=== PATIENT | female | born 1945 | race Caucasian/White ===

== ENCOUNTER 2020-11-02 15:50 | Inpatient (IN) | payer OTHER ==
[2020-11-02] MEDS ORDERED: DEXAMETHASONE SOD PHOSPHATE 10 MG/1 ML VIAL IVPUSH ONE (16:07)
[2020-11-02] MEDS ORDERED: DEXAMETHASONE SOD PHOSPHATE 4 MG/1 ML VIAL ONE (16:20)
[2020-11-02] MEDS ORDERED: ACETAMINOPHEN 1000 MG/100 ML VIAL (NON FORMULARY) IVPB ONE (17:28)
[2020-11-02] MEDS ORDERED: ACETAMINOPHEN INJECTION 100 ML IVPB ONE (17:48)
[2020-11-02 18:34] LABS: VENOUS BASE EXCESS -5.3 mmol/L (-2-2); VENOUS O2 SATURATION 55.7 % (70-80); VENOUS PCO2 41.8 mmHg (38-52); VENOUS PH 7.31 (7.310-7.410)
[2020-11-02 18:45] LABS: BASO % 0.2 % (0-2.0); HEMATOCRIT 28.7 % (32.4-45.2); HEMOGLOBIN 9.4 GM/dL (10.7-15.3); LYMPH % 25.8 % (8-40); MCH 29.6 pg (25.7-33.7); MCHC 32.8 g/dl (32.0-36.0); MEAN CELL VOLUME 90.2 fl (80-96); MEAN PLT VOLUME 9.6 fl (7.5-11.1); MONO % 6.7 % (3.8-10.2); NEUT % 67.3 % (42.8-82.8); PLATELET COUNT 220 K/MM3 (134-434); RBC 3.19 M/mm3 (3.60-5.2); RDW 14.7 % (11.6-15.6); WHITE BLOOD COUNT 6.3 K/mm3 (4.0-10.0)
[2020-11-02 19:00] LABS: CHLORIDE 103 mmol/L (98-107); POTASSIUM 4.2 mmol/L (3.5-5.1); SODIUM 135 mmol/L (136-145)
[2020-11-02 19:03] LABS: ALBUMIN 3.5 g/dl (3.4-5.0); ANION GAP 8 MMOL/L (8-16); BLOOD UREA NITROGEN 50.2 mg/dL (7-18); CO2 23 mmol/L (21-32); GLUCOSE,RANDOM 96 mg/dL (74-106)
[2020-11-02 19:05] LABS: BILIRUBIN,DIRECT 0.1 mg/dL (0.0-0.2)
[2020-11-02 19:06] LABS: CREATININE 2.6 mg/dL (0.55-1.3); SGOT/AST 71 U/L (15-37); SGPT/ALT 40 U/L (13-61)
[2020-11-02 19:07] LABS: BILIRUBIN,TOTAL 0.4 mg/dL (0.2-1); TOT PROT 7.6 g/dl (6.4-8.2)
[2020-11-02 19:08] LABS: ALK PHOS 30 U/L (45-117)
[2020-11-02 19:29] LABS: INR 1.1 (0.83-1.09); PROTHROMBIN TIME (PATIENT) 13.5 SEC (9.7-13.0)
[2020-11-02 19:32] LABS: ACTIVATED PTT 28.4 SECONDS (25.2-36.5)
[2020-11-02] MEDS ORDERED: ZINC SULFATE 220 MG CAPSULE (FP) ONE (20:48)
[2020-11-02] MEDS: ZINC SULFATE 220 MG CAPSULE (FP) PO SCH (20:52)
[2020-11-02] MEDS ORDERED: SODIUM CHLORIDE 1,000 ML IV SCH (21:00)
[2020-11-02] MEDS: ASCORBIC ACID 500 MG TABLET (FP) PO SCH (22:23)
[2020-11-03 02:36] LABS: LDH 436 U/L (84-246)
[2020-11-03 07:40] LABS: HEMATOCRIT 28.8 % (32.4-45.2); HEMOGLOBIN 9.3 GM/dL (10.7-15.3); MCH 29.2 pg (25.7-33.7); MCHC 32.4 g/dl (32.0-36.0); MEAN CELL VOLUME 90.2 fl (80-96); PLATELET COUNT 206 K/MM3 (134-434); RBC 3.19 M/mm3 (3.60-5.2); RDW 14.6 % (11.6-15.6); WHITE BLOOD COUNT 2.9 K/mm3 (4.0-10.0)
[2020-11-03] MEDS ORDERED: DEXAMETHASONE SOD PHOSPHATE 10 MG/1 ML VIAL IVPUSH ONE (08:00)
[2020-11-03 08:05] LABS: IRON SERUM 14 ug/dL (50-175)
[2020-11-03 08:06] LABS: TOTAL IRON BINDING CAPACITY 234 ug/dL (250-450)
[2020-11-03 08:30] LABS: BILIRUBIN,TOTAL 0.3 mg/dL (0.2-1); BLOOD UREA NITROGEN 57.8 mg/dL (7-18); CALCIUM 8.9 mg/dL (8.5-10.1); CREATININE 2.2 mg/dL (0.55-1.3); POTASSIUM 4.2 mmol/L (3.5-5.1); TOT PROT 6.8 g/dl (6.4-8.2)
[2020-11-03] MEDS: ZINC SULFATE 220 MG CAPSULE (FP) PO SCH (09:42)
[2020-11-03] MEDS: ASCORBIC ACID 500 MG TABLET (FP) PO SCH ×2 (09:42→21:07)
[2020-11-03] MEDS: DEXAMETHASONE SOD PHOSPHATE 4 MG/1 ML VIAL IVPUSH SCH (09:43)
[2020-11-03] MEDS: guaiFENesin 200 MG/10 ML 10 ML UNIT-DOSE CUPS PO PRN (09:43)
[2020-11-03] MEDS: FOLIC ACID 1 MG TABLET (FP) PO SCH (09:43)
[2020-11-03] MEDS ORDERED: ENOXAPARIN NA (PORCINE) 30 MG/0.3 ML DISP.SYRIN SQ SCH (10:00)
[2020-11-03] MEDS ORDERED: SODIUM CHLORIDE 1,000 ML IV SCH (11:13)
[2020-11-03] MEDS: FERROUS SO4 325 MG TABLET (FP) PO SCH ×2 (11:43→17:06)
[2020-11-03] MEDS ORDERED: HEPARIN NA (PORCINE) 5,000 UNITS/ML 1ML VIAL SQ SCH (14:00)
[2020-11-03] MEDS: LACTATED RINGERS SOLUTION 1,000 ML/1,000 ML INFUS.BAG IV SCH (14:42)
[2020-11-03 18:47] LABS: EPI CELLS >36 /uL (0-25.1); HYALINE CASTS 1 /uL (0-3.1); URINE APPEARANCE CLOUDY; URINE BACTERIA 2089 /uL (0-1359); URINE BILIRUBIN NEGATIVE (NEGATIVE); URINE COLOR YELLOW; URINE GLUCOSE (UA) NEGATIVE (NEGATIVE); URINE KETONE NEGATIVE (NEGATIVE); URINE LEUK ESTERASE 2+ (NEGATIVE); URINE NITRITE NEGATIVE (NEGATIVE); URINE PROTEIN NEGATIVE (NEGATIVE); URINE RBC 15 /uL (0-23.9); URINE UROBILINOGEN 0.2 mg/dL (0.2-1.0); URINE WBC 85 /uL (0-25.8)
[2020-11-03 20:21] LABS: YEAST NEGATIVE (NEGATIVE)
[2020-11-03] MEDS: ATORVASTATIN CA 40 MG TABLET (FP) PO SCH (21:07)
[2020-11-03] MEDS: DOCUSATE SODIUM 100 MG CAPSULE (FP) PO SCH (21:07)
[2020-11-03] MEDS: MONTELUKAST NA 10 MG TABLET PO SCH (21:07)
[2020-11-03] MEDS: BUDESONIDE/FORMETEROL FUMARATE 160/4.5 mcg INHALER IH SCH (21:08)
[2020-11-04] MEDS: HEPARIN NA (PORCINE) 5,000 UNITS/ML 1ML VIAL SQ SCH ×3 (06:09→22:10)
[2020-11-04] MEDS: ACETAMINOPHEN 325 MG TABLET (FP) PO PRN (06:25)
[2020-11-04] MEDS ORDERED: HEPARIN NA (PORCINE) 5,000 UNITS/ML 1ML VIAL SQ SCH (08:00)
[2020-11-04] MEDS ORDERED: ACETAMINOPHEN 1000 MG/100 ML VIAL (NON FORMULARY) IVPB ONE (08:21)
[2020-11-04 09:13] LABS: BASO % 0.1 % (0-2.0); HEMOGLOBIN 9.2 GM/dL (10.7-15.3); LYMPH % 15.6 % (8-40); MCH 30.2 pg (25.7-33.7); MCHC 34.1 g/dl (32.0-36.0); MEAN CELL VOLUME 88.6 fl (80-96); MEAN PLT VOLUME 8.4 fl (7.5-11.1); MONO % 5.5 % (3.8-10.2); NEUT % 78.8 % (42.8-82.8); PLATELET COUNT 290 K/MM3 (134-434); RBC 3.04 M/mm3 (3.60-5.2); RDW 14.5 % (11.6-15.6)
[2020-11-04] MEDS ORDERED: PT OWN MED DRAWER 7, Y5N ONE (09:28)
[2020-11-04] MEDS: ZINC SULFATE 220 MG CAPSULE (FP) PO SCH (09:37)
[2020-11-04] MEDS: FAMOTIDINE 20 MG TABLET PO SCH (09:37)
[2020-11-04] MEDS: DEXAMETHASONE SOD PHOSPHATE 4 MG/1 ML VIAL IVPUSH SCH (09:37)
[2020-11-04] MEDS: FOLIC ACID 1 MG TABLET (FP) PO SCH (09:38)
[2020-11-04] MEDS: ASPIRIN 81 MG CHEWABLE TABLETS PO SCH (09:38)
[2020-11-04] MEDS: ASCORBIC ACID 500 MG TABLET (FP) PO SCH ×2 (09:38→22:10)
[2020-11-04] MEDS: VALSARTAN 160 MG TABLET PO SCH (09:38)
[2020-11-04] MEDS: FERROUS SO4 325 MG TABLET (FP) PO SCH ×3 (09:38→17:31)
[2020-11-04 09:50] LABS: POTASSIUM 3.8 mmol/L (3.5-5.1)
[2020-11-04 10:07] LABS: ALBUMIN 2.7 g/dl (3.4-5.0); MAGNESIUM 2.5 mg/dL (1.8-2.4)
[2020-11-04 10:10] LABS: CREATININE 1.5 mg/dL (0.55-1.3)
[2020-11-04 10:11] LABS: BILIRUBIN,TOTAL 0.3 mg/dL (0.2-1)
[2020-11-04 10:12] LABS: TOT PROT 6.1 g/dl (6.4-8.2)
[2020-11-04] MEDS: BUDESONIDE/FORMETEROL FUMARATE 160/4.5 mcg INHALER IH SCH ×2 (10:14→22:10)
[2020-11-04] MEDS ORDERED: cefTRIAXone SODIUM 1 GM VIAL ONE (10:26)
[2020-11-04] MEDS ORDERED: DEXTROSE 5%-WATER - 50 ML IVPB ONE (10:26)
[2020-11-04] MEDS: CEFTRIAXONE 1 GM in DEXTROSE 5%-WATER - 50 ML IVPB SCH (10:32)
[2020-11-04] MEDS: AZITHROMYCIN IVPB 500 MG/250 ML BAG IVPB SCH (11:17)
[2020-11-04] MEDS ORDERED: REMDESIVIR 200 MG in SODIUM CHLORIDE 210 ML IVPB ONE (12:00)
[2020-11-04] MEDS: LACTATED RINGERS SOLUTION 1,000 ML/1,000 ML INFUS.BAG IV SCH (14:43)
[2020-11-04] MEDS: MONTELUKAST NA 10 MG TABLET PO SCH (22:10)
[2020-11-04] MEDS: ATORVASTATIN CA 40 MG TABLET (FP) PO SCH (22:10)
[2020-11-04] MEDS: DOCUSATE SODIUM 100 MG CAPSULE (FP) PO SCH (22:10)
[2020-11-05] MEDS: HEPARIN NA (PORCINE) 5,000 UNITS/ML 1ML VIAL SQ SCH ×3 (05:11→22:12)
[2020-11-05 07:56] LABS: BASO % 0.1 % (0-2.0); HEMATOCRIT 25.3 % (32.4-45.2); HEMOGLOBIN 8.6 GM/dL (10.7-15.3); LYMPH % 14.5 % (8-40); MCH 30.3 pg (25.7-33.7); MEAN PLT VOLUME 8.4 fl (7.5-11.1); MONO % 5.1 % (3.8-10.2); NEUT % 80.3 % (42.8-82.8); PLATELET COUNT 267 K/MM3 (134-434); RBC 2.84 M/mm3 (3.60-5.2); RDW 14.6 % (11.6-15.6); WHITE BLOOD COUNT 8.7 K/mm3 (4.0-10.0)
[2020-11-05 08:13] LABS: POTASSIUM 4.1 mmol/L (3.5-5.1)
[2020-11-05 08:22] LABS: ALBUMIN 2.6 g/dl (3.4-5.0); BLOOD UREA NITROGEN 33.4 mg/dL (7-18); CALCIUM 9.2 mg/dL (8.5-10.1); MAGNESIUM 2.5 mg/dL (1.8-2.4)
[2020-11-05 08:26] LABS: CREATININE 1.1 mg/dL (0.55-1.3)
[2020-11-05 08:27] LABS: BILIRUBIN,TOTAL 0.2 mg/dL (0.2-1); TOT PROT 5.9 g/dl (6.4-8.2)
[2020-11-05] MEDS ORDERED: cefTRIAXone SODIUM 1 GM VIAL ONE (09:51)
[2020-11-05] MEDS ORDERED: DEXTROSE 5%-WATER - 50 ML IVPB ONE (09:51)
[2020-11-05] MEDS: ASCORBIC ACID 500 MG TABLET (FP) PO SCH ×2 (10:27→22:14)
[2020-11-05] MEDS: FERROUS SO4 325 MG TABLET (FP) PO SCH ×3 (10:27→17:34)
[2020-11-05] MEDS: VALSARTAN 160 MG TABLET PO SCH (10:27)
[2020-11-05] MEDS: CEFTRIAXONE 1 GM in DEXTROSE 5%-WATER - 50 ML IVPB SCH (10:27)
[2020-11-05] MEDS: DEXAMETHASONE SOD PHOSPHATE 4 MG/1 ML VIAL IVPUSH SCH (10:27)
[2020-11-05] MEDS: ASPIRIN 81 MG CHEWABLE TABLETS PO SCH (10:27)
[2020-11-05] MEDS: FOLIC ACID 1 MG TABLET (FP) PO SCH (10:27)
[2020-11-05] MEDS: ZINC SULFATE 220 MG CAPSULE (FP) PO SCH (10:27)
[2020-11-05] MEDS: FAMOTIDINE 20 MG TABLET PO SCH (10:27)
[2020-11-05] MEDS: AZITHROMYCIN IVPB 500 MG/250 ML BAG IVPB SCH (10:29)
[2020-11-05] MEDS: BUDESONIDE/FORMETEROL FUMARATE 160/4.5 mcg INHALER IH SCH ×3 (10:36→22:14)
[2020-11-05] MEDS: REMDESIVIR 100 MG in SODIUM CHLORIDE 230 ML IVPB SCH (12:21)
[2020-11-05] MEDS: LACTATED RINGERS SOLUTION 1,000 ML/1,000 ML INFUS.BAG IV SCH (14:06)
[2020-11-05] MEDS: ATORVASTATIN CA 40 MG TABLET (FP) PO SCH (22:13)
[2020-11-05] MEDS: MONTELUKAST NA 10 MG TABLET PO SCH (22:13)
[2020-11-05] MEDS: DOCUSATE SODIUM 100 MG CAPSULE (FP) PO SCH (22:13)
[2020-11-06] MEDS: LACTATED RINGERS SOLUTION 1,000 ML/1,000 ML INFUS.BAG IV SCH ×2 (04:37→15:20)
[2020-11-06] MEDS: ACETAMINOPHEN 325 MG TABLET (FP) PO PRN (06:23)
[2020-11-06] MEDS: HEPARIN NA (PORCINE) 5,000 UNITS/ML 1ML VIAL SQ SCH ×3 (06:23→21:51)
[2020-11-06 07:43] LABS: BASO % 0.1 % (0-2.0); EOS % 0.1 % (0-4.5); HEMOGLOBIN 8.8 GM/dL (10.7-15.3); LYMPH % 15.3 % (8-40); MCH 30.2 pg (25.7-33.7); MCHC 33.9 g/dl (32.0-36.0); MEAN PLT VOLUME 8.3 fl (7.5-11.1); MONO % 4.9 % (3.8-10.2); NEUT % 79.6 % (42.8-82.8); PLATELET COUNT 326 K/MM3 (134-434); RBC 2.92 M/mm3 (3.60-5.2); RDW 14.4 % (11.6-15.6); WHITE BLOOD COUNT 11.2 K/mm3 (4.0-10.0)
[2020-11-06 07:57] LABS: POTASSIUM 3.6 mmol/L (3.5-5.1)
[2020-11-06 08:04] LABS: ALBUMIN 2.3 g/dl (3.4-5.0)
[2020-11-06 08:06] LABS: CREATININE 0.9 mg/dL (0.55-1.3)
[2020-11-06 08:07] LABS: TOT PROT 5.6 g/dl (6.4-8.2)
[2020-11-06 08:09] LABS: BILIRUBIN,TOTAL 0.3 mg/dL (0.2-1)
[2020-11-06] MEDS ORDERED: POTASSIUM CHLORIDE TABS 20 MEQ TABLET.ER (FP) PO ONE (09:45)
[2020-11-06] MEDS ORDERED: cefTRIAXone SODIUM 1 GM VIAL ONE (10:45)
[2020-11-06] MEDS ORDERED: DEXTROSE 5%-WATER - 50 ML IVPB ONE (10:45)
[2020-11-06] MEDS: AZITHROMYCIN IVPB 500 MG/250 ML BAG IVPB SCH (10:50)
[2020-11-06] MEDS: ZINC SULFATE 220 MG CAPSULE (FP) PO SCH (10:50)
[2020-11-06] MEDS: CEFTRIAXONE 1 GM in DEXTROSE 5%-WATER - 50 ML IVPB SCH (10:50)
[2020-11-06] MEDS: FERROUS SO4 325 MG TABLET (FP) PO SCH ×3 (10:51→17:37)
[2020-11-06] MEDS: ASPIRIN 81 MG CHEWABLE TABLETS PO SCH (10:51)
[2020-11-06] MEDS: ASCORBIC ACID 500 MG TABLET (FP) PO SCH ×2 (10:51→21:51)
[2020-11-06] MEDS: VALSARTAN 160 MG TABLET PO SCH (10:51)
[2020-11-06] MEDS: DEXAMETHASONE SOD PHOSPHATE 4 MG/1 ML VIAL IVPUSH SCH (10:51)
[2020-11-06] MEDS: BUDESONIDE/FORMETEROL FUMARATE 160/4.5 mcg INHALER IH SCH ×2 (10:52→21:52)
[2020-11-06] MEDS: FOLIC ACID 1 MG TABLET (FP) PO SCH (10:53)
[2020-11-06] MEDS: FAMOTIDINE 20 MG TABLET PO SCH (10:53)
[2020-11-06] MEDS: REMDESIVIR 100 MG in SODIUM CHLORIDE 230 ML IVPB SCH (12:31)
[2020-11-06] MEDS: ALPRAZolam 0.25 MG TABLET PO PRN (13:02)
[2020-11-06] MEDS ORDERED: TOCILIZUMAB IVPB ONE (15:00)
[2020-11-06] MEDS ORDERED: SODIUM CHLORIDE IVPB ONE (15:00)
[2020-11-06] MEDS ORDERED: LACTATED RINGERS SOLUTION 1,000 ML/1,000 ML INFUS.BAG IV SCH (15:35)
[2020-11-06] MEDS: ATORVASTATIN CA 40 MG TABLET (FP) PO SCH (21:51)
[2020-11-06] MEDS: DOCUSATE SODIUM 100 MG CAPSULE (FP) PO SCH (21:51)
[2020-11-06] MEDS: MONTELUKAST NA 10 MG TABLET PO SCH (21:51)
[2020-11-07] MEDS: HEPARIN NA (PORCINE) 5,000 UNITS/ML 1ML VIAL SQ SCH ×3 (06:32→21:27)
[2020-11-07 08:58] LABS: BASO % 0.2 % (0-2.0); EOS % 0.8 % (0-4.5); HEMATOCRIT 28.7 % (32.4-45.2); HEMOGLOBIN 9.5 GM/dL (10.7-15.3); LYMPH % 21.2 % (8-40); MCH 29.6 pg (25.7-33.7); MCHC 33.2 g/dl (32.0-36.0); MEAN CELL VOLUME 89.1 fl (80-96); MEAN PLT VOLUME 8.2 fl (7.5-11.1); MONO % 4.8 % (3.8-10.2); PLATELET COUNT 392 K/MM3 (134-434); RBC 3.22 M/mm3 (3.60-5.2); RDW 14.6 % (11.6-15.6); WHITE BLOOD COUNT 9.1 K/mm3 (4.0-10.0)
[2020-11-07 09:11] LABS: POTASSIUM 4.1 mmol/L (3.5-5.1)
[2020-11-07 09:17] LABS: CALCIUM 8.6 mg/dL (8.5-10.1)
[2020-11-07 09:18] LABS: ALBUMIN 2.2 g/dl (3.4-5.0); BLOOD UREA NITROGEN 22.4 mg/dL (7-18)
[2020-11-07 09:21] LABS: CREATININE 0.8 mg/dL (0.55-1.3)
[2020-11-07 09:22] LABS: BILIRUBIN,TOTAL 0.3 mg/dL (0.2-1); TOT PROT 5.6 g/dl (6.4-8.2)
[2020-11-07] MEDS ORDERED: cefTRIAXone SODIUM 1 GM VIAL ONE (09:51)
[2020-11-07] MEDS ORDERED: DEXTROSE 5%-WATER - 50 ML IVPB ONE (09:51)
[2020-11-07] MEDS: FERROUS SO4 325 MG TABLET (FP) PO SCH ×3 (09:54→18:03)
[2020-11-07] MEDS: ASCORBIC ACID 500 MG TABLET (FP) PO SCH ×2 (09:54→21:31)
[2020-11-07] MEDS: ASPIRIN 81 MG CHEWABLE TABLETS PO SCH (09:54)
[2020-11-07] MEDS: ZINC SULFATE 220 MG CAPSULE (FP) PO SCH (09:54)
[2020-11-07] MEDS: FOLIC ACID 1 MG TABLET (FP) PO SCH (09:54)
[2020-11-07] MEDS: VALSARTAN 160 MG TABLET PO SCH (09:54)
[2020-11-07] MEDS: FAMOTIDINE 20 MG TABLET PO SCH (09:54)
[2020-11-07] MEDS: DEXAMETHASONE SOD PHOSPHATE 4 MG/1 ML VIAL IVPUSH SCH (09:56)
[2020-11-07] MEDS: AZITHROMYCIN IVPB 500 MG/250 ML BAG IVPB SCH (10:06)
[2020-11-07] MEDS: BUDESONIDE/FORMETEROL FUMARATE 160/4.5 mcg INHALER IH SCH ×2 (10:06→21:45)
[2020-11-07] MEDS: ALPRAZolam 0.25 MG TABLET PO PRN (10:32)
[2020-11-07] MEDS ORDERED: FUROSEMIDE 40 MG/4 ML INJECTABLE VIAL IVPB ONE (10:45)
[2020-11-07] MEDS ORDERED: methylPREDNISolone NA SUCC 40 MG/1 ML VIAL IVPUSH ONE (10:45)
[2020-11-07] MEDS: CEFTRIAXONE 1 GM in DEXTROSE 5%-WATER - 50 ML IVPB SCH (10:53)
[2020-11-07] MEDS ORDERED: MORPHINE SULFATE 2 MG/ML VIAL IVPUSH ONE ×2 (11:00→21:00)
[2020-11-07] MEDS ORDERED: LORazepam 2 MG/ML SDV VIAL IVPUSH ONE ×2 (12:00→21:00)
[2020-11-07] MEDS: REMDESIVIR 100 MG in SODIUM CHLORIDE 230 ML IVPB SCH (12:08)
[2020-11-07] MEDS ORDERED: MORPHINE SULFATE 2 MG/ML VIAL IVPUSH PRN (16:31)
[2020-11-07] MEDS ORDERED: ACETAMINOPHEN 1000 MG/100 ML VIAL (NON FORMULARY) IVPB PRN (16:33)
[2020-11-07] MEDS: MONTELUKAST NA 10 MG TABLET PO SCH (21:31)
[2020-11-07] MEDS: ATORVASTATIN CA 40 MG TABLET (FP) PO SCH (21:31)
[2020-11-07] MEDS: DOCUSATE SODIUM 100 MG CAPSULE (FP) PO SCH (21:31)
[2020-11-08] MEDS: HEPARIN NA (PORCINE) 5,000 UNITS/ML 1ML VIAL SQ SCH ×3 (05:55→21:39)
[2020-11-08 09:02] LABS: BASO % 0.2 % (0-2.0); EOS % 0.1 % (0-4.5); HEMATOCRIT 29.1 % (32.4-45.2); HEMOGLOBIN 9.7 GM/dL (10.7-15.3); LYMPH % 14.2 % (8-40); MCH 29.8 pg (25.7-33.7); MCHC 33.5 g/dl (32.0-36.0); MEAN PLT VOLUME 8.2 fl (7.5-11.1); MONO % 7.3 % (3.8-10.2); NEUT % 78.2 % (42.8-82.8); PLATELET COUNT 440 K/MM3 (134-434); RBC 3.27 M/mm3 (3.60-5.2); RDW 14.4 % (11.6-15.6); WHITE BLOOD COUNT 12.5 K/mm3 (4.0-10.0)
[2020-11-08 09:21] LABS: POTASSIUM 4.3 mmol/L (3.5-5.1)
[2020-11-08 09:32] LABS: CALCIUM 9.1 mg/dL (8.5-10.1)
[2020-11-08 09:33] LABS: ALBUMIN 2.3 g/dl (3.4-5.0); BLOOD UREA NITROGEN 33.7 mg/dL (7-18); MAGNESIUM 2.1 mg/dL (1.8-2.4)
[2020-11-08 09:36] LABS: CREATININE 0.9 mg/dL (0.55-1.3)
[2020-11-08 09:38] LABS: BILIRUBIN,TOTAL 0.6 mg/dL (0.2-1)
[2020-11-08 09:41] LABS: TOT PROT 5.6 g/dl (6.4-8.2)
[2020-11-08] MEDS: FOLIC ACID 1 MG TABLET (FP) PO SCH (10:07)
[2020-11-08] MEDS: ZINC SULFATE 220 MG CAPSULE (FP) PO SCH (10:07)
[2020-11-08] MEDS: VALSARTAN 160 MG TABLET PO SCH (10:07)
[2020-11-08] MEDS: FAMOTIDINE 20 MG TABLET PO SCH (10:07)
[2020-11-08] MEDS: ASCORBIC ACID 500 MG TABLET (FP) PO SCH ×2 (10:07→21:41)
[2020-11-08] MEDS: FERROUS SO4 325 MG TABLET (FP) PO SCH ×3 (10:07→17:29)
[2020-11-08] MEDS: ASPIRIN 81 MG CHEWABLE TABLETS PO SCH (10:07)
[2020-11-08] MEDS: BUDESONIDE/FORMETEROL FUMARATE 160/4.5 mcg INHALER IH SCH ×2 (10:08→21:42)
[2020-11-08] MEDS: AZITHROMYCIN IVPB 500 MG/250 ML BAG IVPB SCH (10:08)
[2020-11-08] MEDS: DEXAMETHASONE SOD PHOSPHATE 4 MG/1 ML VIAL IVPUSH SCH (10:08)
[2020-11-08] MEDS: REMDESIVIR 100 MG in SODIUM CHLORIDE 230 ML IVPB SCH (12:17)
[2020-11-08] MEDS: MONTELUKAST NA 10 MG TABLET PO SCH (21:40)
[2020-11-08] MEDS: ATORVASTATIN CA 40 MG TABLET (FP) PO SCH (21:40)
[2020-11-08] MEDS: ALPRAZolam 0.25 MG TABLET PO PRN (21:41)
[2020-11-08] MEDS: DOCUSATE SODIUM 100 MG CAPSULE (FP) PO SCH (21:52)
[2020-11-09] MEDS: HEPARIN NA (PORCINE) 5,000 UNITS/ML 1ML VIAL SQ SCH ×3 (05:56→21:17)
[2020-11-09 06:57] LABS: BASO % 0.1 % (0-2.0); EOS % 0.6 % (0-4.5); HEMATOCRIT 28.2 % (32.4-45.2); HEMOGLOBIN 9.1 GM/dL (10.7-15.3); LYMPH % 17.2 % (8-40); MCHC 32.1 g/dl (32.0-36.0); MEAN CELL VOLUME 90.2 fl (80-96); MEAN PLT VOLUME 8.1 fl (7.5-11.1); MONO % 6.8 % (3.8-10.2); NEUT % 75.3 % (42.8-82.8); PLATELET COUNT 418 K/MM3 (134-434); RBC 3.13 M/mm3 (3.60-5.2); RDW 14.5 % (11.6-15.6); WHITE BLOOD COUNT 11.4 K/mm3 (4.0-10.0)
[2020-11-09 07:22] LABS: POTASSIUM 4.1 mmol/L (3.5-5.1)
[2020-11-09 07:30] LABS: ALBUMIN 2.3 g/dl (3.4-5.0)
[2020-11-09 07:31] LABS: BLOOD UREA NITROGEN 35.4 mg/dL (7-18); MAGNESIUM 2.2 mg/dL (1.8-2.4)
[2020-11-09 07:32] LABS: BILIRUBIN,TOTAL 0.3 mg/dL (0.2-1); TOT PROT 5.4 g/dl (6.4-8.2)
[2020-11-09 07:34] LABS: CREATININE 0.8 mg/dL (0.55-1.3)
[2020-11-09 10:10] LABS: PLATELET ESTIMATE SLT INCREASE
[2020-11-09] MEDS: ASCORBIC ACID 500 MG TABLET (FP) PO SCH ×2 (11:22→21:17)
[2020-11-09] MEDS: VALSARTAN 160 MG TABLET PO SCH (11:22)
[2020-11-09] MEDS: FERROUS SO4 325 MG TABLET (FP) PO SCH ×3 (11:22→18:33)
[2020-11-09] MEDS: ASPIRIN 81 MG CHEWABLE TABLETS PO SCH (11:22)
[2020-11-09] MEDS: FAMOTIDINE 20 MG TABLET PO SCH (11:22)
[2020-11-09] MEDS: ZINC SULFATE 220 MG CAPSULE (FP) PO SCH (11:22)
[2020-11-09] MEDS: DEXAMETHASONE SOD PHOSPHATE 4 MG/1 ML VIAL IVPUSH SCH (11:23)
[2020-11-09] MEDS: FOLIC ACID 1 MG TABLET (FP) PO SCH (11:23)
[2020-11-09] MEDS: BUDESONIDE/FORMETEROL FUMARATE 160/4.5 mcg INHALER IH SCH ×2 (11:24→21:22)
[2020-11-09 13:22] VITALS: BMI 31.6
[2020-11-09] MEDS: guaiFENesin 200 MG/10 ML 10 ML UNIT-DOSE CUPS PO PRN (18:33)
[2020-11-09] MEDS: DOCUSATE SODIUM 100 MG CAPSULE (FP) PO SCH (21:16)
[2020-11-09] MEDS: MONTELUKAST NA 10 MG TABLET PO SCH (21:17)
[2020-11-09] MEDS: ATORVASTATIN CA 40 MG TABLET (FP) PO SCH (21:17)
[2020-11-09] MEDS: ALPRAZolam 0.25 MG TABLET PO PRN (21:22)
[2020-11-10] MEDS: guaiFENesin 200 MG/10 ML 10 ML UNIT-DOSE CUPS PO PRN ×2 (06:17→21:22)
[2020-11-10] MEDS: HEPARIN NA (PORCINE) 5,000 UNITS/ML 1ML VIAL SQ SCH ×3 (06:17→21:22)
[2020-11-10] MEDS: DEXAMETHASONE SOD PHOSPHATE 4 MG/1 ML VIAL IVPUSH SCH (09:09)
[2020-11-10] MEDS: ZINC SULFATE 220 MG CAPSULE (FP) PO SCH (09:09)
[2020-11-10] MEDS: ASPIRIN 81 MG CHEWABLE TABLETS PO SCH (09:09)
[2020-11-10] MEDS: FERROUS SO4 325 MG TABLET (FP) PO SCH ×3 (09:09→17:58)
[2020-11-10] MEDS: FOLIC ACID 1 MG TABLET (FP) PO SCH (09:09)
[2020-11-10] MEDS: FAMOTIDINE 20 MG TABLET PO SCH (09:09)
[2020-11-10] MEDS: ASCORBIC ACID 500 MG TABLET (FP) PO SCH ×2 (09:09→21:22)
[2020-11-10] MEDS: BUDESONIDE/FORMETEROL FUMARATE 160/4.5 mcg INHALER IH SCH ×2 (09:09→21:47)
[2020-11-10] MEDS: VALSARTAN 160 MG TABLET PO SCH (09:09)
[2020-11-10] MEDS: ATORVASTATIN CA 40 MG TABLET (FP) PO SCH (21:22)
[2020-11-10] MEDS: ALPRAZolam 0.25 MG TABLET PO PRN (21:22)
[2020-11-10] MEDS: MONTELUKAST NA 10 MG TABLET PO SCH (21:22)
[2020-11-10] MEDS: DOCUSATE SODIUM 100 MG CAPSULE (FP) PO SCH (21:22)
[2020-11-11] MEDS: HEPARIN NA (PORCINE) 5,000 UNITS/ML 1ML VIAL SQ SCH (06:23)
[2020-11-11 08:07] LABS: BASO % 0.2 % (0-2.0); EOS % 1.3 % (0-4.5); HEMATOCRIT 28.2 % (32.4-45.2); HEMOGLOBIN 9.1 GM/dL (10.7-15.3); LYMPH % 19.3 % (8-40); MCH 29.4 pg (25.7-33.7); MCHC 32.5 g/dl (32.0-36.0); MEAN CELL VOLUME 90.6 fl (80-96); MEAN PLT VOLUME 8.2 fl (7.5-11.1); MONO % 5.9 % (3.8-10.2); NEUT % 73.3 % (42.8-82.8); PLATELET COUNT 352 K/MM3 (134-434); RBC 3.11 M/mm3 (3.60-5.2); RDW 14.7 % (11.6-15.6); WHITE BLOOD COUNT 12.2 K/mm3 (4.0-10.0)
[2020-11-11 08:28] LABS: POTASSIUM 3.9 mmol/L (3.5-5.1)
[2020-11-11 08:36] LABS: ALBUMIN 2.4 g/dl (3.4-5.0); BLOOD UREA NITROGEN 33.1 mg/dL (7-18)
[2020-11-11 08:37] LABS: MAGNESIUM 2.2 mg/dL (1.8-2.4)
[2020-11-11 08:38] LABS: CREATININE 0.8 mg/dL (0.55-1.3)
[2020-11-11 08:41] LABS: BILIRUBIN,TOTAL 0.3 mg/dL (0.2-1); TOT PROT 5.1 g/dl (6.4-8.2)
[2020-11-11] MEDS: ASPIRIN 81 MG CHEWABLE TABLETS PO SCH (09:18)
[2020-11-11] MEDS: FERROUS SO4 325 MG TABLET (FP) PO SCH ×3 (09:18→17:22)
[2020-11-11] MEDS: DEXAMETHASONE SOD PHOSPHATE 4 MG/1 ML VIAL IVPUSH SCH (09:19)
[2020-11-11] MEDS: VALSARTAN 160 MG TABLET PO SCH (09:20)
[2020-11-11] MEDS: ZINC SULFATE 220 MG CAPSULE (FP) PO SCH (09:20)
[2020-11-11] MEDS: FAMOTIDINE 20 MG TABLET PO SCH (09:21)
[2020-11-11] MEDS: ASCORBIC ACID 500 MG TABLET (FP) PO SCH ×2 (09:21→21:58)
[2020-11-11] MEDS: FOLIC ACID 1 MG TABLET (FP) PO SCH (09:21)
[2020-11-11] MEDS: guaiFENesin 200 MG/10 ML 10 ML UNIT-DOSE CUPS PO PRN ×2 (09:24→21:59)
[2020-11-11] MEDS: ALPRAZolam 0.25 MG TABLET PO PRN ×2 (09:24→21:59)
[2020-11-11] MEDS: BUDESONIDE/FORMETEROL FUMARATE 160/4.5 mcg INHALER IH SCH ×2 (09:38→21:58)
[2020-11-11 10:45] LABS: ANISOCYTOSIS 0; HELMET CELLS 0; HOWELL-JOLLY BODIES 0; MACROCYTOSIS 0; OVALOCYTE 0; PLATELET ESTIMATE NORMAL; ROULEAU 0; SICKELED CELLS 0; TARGET CELLS 0; TEAR DROP CELLS 0; TOXIC GRANULATION 0
[2020-11-11] MEDS: DOCUSATE SODIUM 100 MG CAPSULE (FP) PO SCH (21:57)
[2020-11-11] MEDS: MONTELUKAST NA 10 MG TABLET PO SCH (21:58)
[2020-11-11] MEDS: ATORVASTATIN CA 40 MG TABLET (FP) PO SCH (21:58)
[2020-11-11] MEDS: APIXABAN 5 MG TABLET PO SCH (21:58)
[2020-11-12 08:08] LABS: ALBUMIN 2.8 g/dl (3.4-5.0); BLOOD UREA NITROGEN 35.2 mg/dL (7-18); CALCIUM 9.1 mg/dL (8.5-10.1); MAGNESIUM 2.1 mg/dL (1.8-2.4)
[2020-11-12 08:11] LABS: BASO % 0.3 % (0-2.0); HEMATOCRIT 28.6 % (32.4-45.2); HEMOGLOBIN 9.4 GM/dL (10.7-15.3); LYMPH % 17.8 % (8-40); MCH 30.1 pg (25.7-33.7); MEAN CELL VOLUME 91.1 fl (80-96); MEAN PLT VOLUME 8.8 fl (7.5-11.1); MONO % 6.3 % (3.8-10.2); NEUT % 74.6 % (42.8-82.8); PLATELET COUNT 339 K/MM3 (134-434); RBC 3.14 M/mm3 (3.60-5.2); RDW 14.7 % (11.6-15.6); WHITE BLOOD COUNT 13.5 K/mm3 (4.0-10.0)
[2020-11-12 08:12] LABS: CREATININE 0.8 mg/dL (0.55-1.3)
[2020-11-12 08:13] LABS: BILIRUBIN,TOTAL 0.4 mg/dL (0.2-1); TOT PROT 5.7 g/dl (6.4-8.2)
[2020-11-12] MEDS: FERROUS SO4 325 MG TABLET (FP) PO SCH ×3 (10:24→18:20)
[2020-11-12] MEDS: FOLIC ACID 1 MG TABLET (FP) PO SCH (10:25)
[2020-11-12] MEDS: APIXABAN 5 MG TABLET PO SCH ×2 (10:25→21:18)
[2020-11-12] MEDS: ASCORBIC ACID 500 MG TABLET (FP) PO SCH ×2 (10:25→21:17)
[2020-11-12] MEDS: ZINC SULFATE 220 MG CAPSULE (FP) PO SCH (10:25)
[2020-11-12] MEDS: VALSARTAN 160 MG TABLET PO SCH (10:26)
[2020-11-12] MEDS: ASPIRIN 81 MG CHEWABLE TABLETS PO SCH (10:26)
[2020-11-12] MEDS: DEXAMETHASONE SOD PHOSPHATE 4 MG/1 ML VIAL IVPUSH SCH (10:26)
[2020-11-12] MEDS: BUDESONIDE/FORMETEROL FUMARATE 160/4.5 mcg INHALER IH SCH ×2 (10:27→21:18)
[2020-11-12] MEDS: FAMOTIDINE 20 MG TABLET PO SCH (10:27)
[2020-11-12 10:42] LABS: ANISOCYTOSIS 0; HELMET CELLS 0; HOWELL-JOLLY BODIES 0; MACROCYTOSIS 0; OVALOCYTE 0; PLATELET ESTIMATE NORMAL; ROULEAU 0; SICKELED CELLS 0; TARGET CELLS 0; TEAR DROP CELLS 0; TOXIC GRANULATION 0
[2020-11-12] MEDS: ZINC OXIDE/PANTHENOL/VITAMIN E 56 GM TUBE TP SCH ×2 (15:30→21:19)
[2020-11-12] MEDS: MONTELUKAST NA 10 MG TABLET PO SCH (21:17)
[2020-11-12] MEDS: guaiFENesin 200 MG/10 ML 10 ML UNIT-DOSE CUPS PO PRN (21:17)
[2020-11-12] MEDS: ATORVASTATIN CA 40 MG TABLET (FP) PO SCH (21:18)
[2020-11-12] MEDS: DOCUSATE SODIUM 100 MG CAPSULE (FP) PO SCH (21:18)
[2020-11-12] MEDS: ALPRAZolam 0.25 MG TABLET PO PRN (21:19)
[2020-11-13 07:55] LABS: BASO % 0.2 % (0-2.0); EOS % 0.6 % (0-4.5); HEMATOCRIT 27.9 % (32.4-45.2); HEMOGLOBIN 9.2 GM/dL (10.7-15.3); LYMPH % 14.7 % (8-40); MCH 29.6 pg (25.7-33.7); MCHC 32.8 g/dl (32.0-36.0); MEAN CELL VOLUME 90.4 fl (80-96); MEAN PLT VOLUME 8.4 fl (7.5-11.1); MONO % 5.1 % (3.8-10.2); NEUT % 79.4 % (42.8-82.8); PLATELET COUNT 293 K/MM3 (134-434); RBC 3.09 M/mm3 (3.60-5.2); RDW 14.2 % (11.6-15.6)
[2020-11-13 08:14] LABS: POTASSIUM 4.1 mmol/L (3.5-5.1)
[2020-11-13 08:18] LABS: BLOOD UREA NITROGEN 35.8 mg/dL (7-18); CALCIUM 9.3 mg/dL (8.5-10.1)
[2020-11-13 08:19] LABS: ALBUMIN 2.6 g/dl (3.4-5.0); MAGNESIUM 2.2 mg/dL (1.8-2.4)
[2020-11-13 08:20] LABS: BILIRUBIN,TOTAL 0.4 mg/dL (0.2-1)
[2020-11-13 08:21] LABS: CREATININE 0.8 mg/dL (0.55-1.3)
[2020-11-13 08:24] LABS: TOT PROT 5.4 g/dl (6.4-8.2)
[2020-11-13] MEDS ORDERED: PT OWN MED DRAWER 7, Y5N ONE (09:54)
[2020-11-13] MEDS: DEXAMETHASONE SOD PHOSPHATE 4 MG/1 ML VIAL IVPUSH SCH (10:07)
[2020-11-13] MEDS: FERROUS SO4 325 MG TABLET (FP) PO SCH ×3 (10:07→17:38)
[2020-11-13] MEDS: FOLIC ACID 1 MG TABLET (FP) PO SCH (10:08)
[2020-11-13] MEDS: ZINC OXIDE/PANTHENOL/VITAMIN E 56 GM TUBE TP SCH ×2 (10:08→22:22)
[2020-11-13] MEDS: ASPIRIN 81 MG CHEWABLE TABLETS PO SCH (10:08)
[2020-11-13] MEDS: ZINC SULFATE 220 MG CAPSULE (FP) PO SCH (10:08)
[2020-11-13] MEDS: ASCORBIC ACID 500 MG TABLET (FP) PO SCH ×2 (10:08→22:26)
[2020-11-13] MEDS: APIXABAN 5 MG TABLET PO SCH ×2 (10:08→22:26)
[2020-11-13] MEDS: BUDESONIDE/FORMETEROL FUMARATE 160/4.5 mcg INHALER IH SCH ×2 (10:09→22:37)
[2020-11-13] MEDS: FAMOTIDINE 20 MG TABLET PO SCH (10:09)
[2020-11-13] MEDS: VALSARTAN 160 MG TABLET PO SCH (10:09)
[2020-11-13] MEDS: ATORVASTATIN CA 40 MG TABLET (FP) PO SCH (22:26)
[2020-11-13] MEDS: DOCUSATE SODIUM 100 MG CAPSULE (FP) PO SCH (22:26)
[2020-11-13] MEDS: MONTELUKAST NA 10 MG TABLET PO SCH (22:26)
[2020-11-13] MEDS: ALPRAZolam 0.25 MG TABLET PO PRN (23:00)
[2020-11-14 06:35] LABS: BASO % 0.2 % (0-2.0); EOS % 0.3 % (0-4.5); HEMATOCRIT 26.8 % (32.4-45.2); HEMOGLOBIN 8.9 GM/dL (10.7-15.3); LYMPH % 12.2 % (8-40); MCH 29.9 pg (25.7-33.7); MCHC 33.2 g/dl (32.0-36.0); MEAN CELL VOLUME 90.1 fl (80-96); MEAN PLT VOLUME 8.4 fl (7.5-11.1); MONO % 5.6 % (3.8-10.2); NEUT % 81.7 % (42.8-82.8); PLATELET COUNT 248 K/MM3 (134-434); RBC 2.98 M/mm3 (3.60-5.2); RDW 14.1 % (11.6-15.6)
[2020-11-14 06:53] LABS: POTASSIUM 4.1 mmol/L (3.5-5.1)
[2020-11-14 06:55] LABS: ALBUMIN 2.7 g/dl (3.4-5.0); BLOOD UREA NITROGEN 31.7 mg/dL (7-18); CALCIUM 8.9 mg/dL (8.5-10.1)
[2020-11-14 06:58] LABS: CREATININE 0.7 mg/dL (0.55-1.3)
[2020-11-14 06:59] LABS: BILIRUBIN,TOTAL 0.4 mg/dL (0.2-1); TOT PROT 5.3 g/dl (6.4-8.2)
[2020-11-14] MEDS: DEXAMETHASONE SOD PHOSPHATE 4 MG/1 ML VIAL IVPUSH SCH (09:21)
[2020-11-14] MEDS: FAMOTIDINE 20 MG TABLET PO SCH (09:22)
[2020-11-14] MEDS: FERROUS SO4 325 MG TABLET (FP) PO SCH ×3 (09:22→17:37)
[2020-11-14] MEDS: ASCORBIC ACID 500 MG TABLET (FP) PO SCH ×2 (09:22→21:26)
[2020-11-14] MEDS: ZINC SULFATE 220 MG CAPSULE (FP) PO SCH (09:23)
[2020-11-14] MEDS: APIXABAN 5 MG TABLET PO SCH ×2 (09:23→21:25)
[2020-11-14] MEDS: ZINC OXIDE/PANTHENOL/VITAMIN E 56 GM TUBE TP SCH ×2 (09:23→21:25)
[2020-11-14] MEDS: FOLIC ACID 1 MG TABLET (FP) PO SCH (09:23)
[2020-11-14] MEDS: ASPIRIN 81 MG CHEWABLE TABLETS PO SCH (09:23)
[2020-11-14] MEDS: VALSARTAN 160 MG TABLET PO SCH (09:35)
[2020-11-14] MEDS: BUDESONIDE/FORMETEROL FUMARATE 160/4.5 mcg INHALER IH SCH ×2 (09:36→21:26)
[2020-11-14] MEDS: ALPRAZolam 0.25 MG TABLET PO PRN ×2 (10:39→21:27)
[2020-11-14] MEDS: ATORVASTATIN CA 40 MG TABLET (FP) PO SCH (21:25)
[2020-11-14] MEDS: DOCUSATE SODIUM 100 MG CAPSULE (FP) PO SCH (21:25)
[2020-11-14] MEDS: MONTELUKAST NA 10 MG TABLET PO SCH (21:26)
[2020-11-14] MEDS: guaiFENesin 200 MG/10 ML 10 ML UNIT-DOSE CUPS PO PRN (21:27)
[2020-11-15 07:07] LABS: BASO % 0.4 % (0-2.0); EOS % 0.2 % (0-4.5); HEMATOCRIT 27.9 % (32.4-45.2); HEMOGLOBIN 9.4 GM/dL (10.7-15.3); LYMPH % 13.3 % (8-40); MCH 30.3 pg (25.7-33.7); MCHC 33.5 g/dl (32.0-36.0); MEAN CELL VOLUME 90.5 fl (80-96); MEAN PLT VOLUME 8.7 fl (7.5-11.1); MONO % 6.2 % (3.8-10.2); NEUT % 79.9 % (42.8-82.8); PLATELET COUNT 224 K/MM3 (134-434); RBC 3.08 M/mm3 (3.60-5.2); RDW 14.2 % (11.6-15.6); WHITE BLOOD COUNT 17.2 K/mm3 (4.0-10.0)
[2020-11-15 07:38] LABS: CHLORIDE 110 mmol/L (98-107); POTASSIUM 3.9 mmol/L (3.5-5.1); SODIUM 142 mmol/L (136-145)
[2020-11-15 07:39] LABS: CALCIUM 8.9 mg/dL (8.5-10.1)
[2020-11-15 07:40] LABS: ALBUMIN 2.7 g/dl (3.4-5.0); ANION GAP 4 MMOL/L (8-16); BLOOD UREA NITROGEN 31.4 mg/dL (7-18); CO2 28 mmol/L (21-32); GLUCOSE,RANDOM 95 mg/dL (74-106); MAGNESIUM 2.1 mg/dL (1.8-2.4)
[2020-11-15 07:43] LABS: CREATININE 0.7 mg/dL (0.55-1.3); SGOT/AST 32 U/L (15-37); SGPT/ALT 44 U/L (13-61)
[2020-11-15 07:45] LABS: BILIRUBIN,TOTAL 0.5 mg/dL (0.2-1); TOT PROT 5.4 g/dl (6.4-8.2)
[2020-11-15 07:46] LABS: ALK PHOS 108 U/L (45-117)
[2020-11-15 07:53] LABS: LDH 392 U/L (84-246)
[2020-11-15] MEDS: FERROUS SO4 325 MG TABLET (FP) PO SCH ×3 (08:41→18:03)
[2020-11-15] MEDS: ZINC SULFATE 220 MG CAPSULE (FP) PO SCH (10:04)
[2020-11-15] MEDS: VALSARTAN 160 MG TABLET PO SCH (10:04)
[2020-11-15] MEDS: ASPIRIN 81 MG CHEWABLE TABLETS PO SCH (10:05)
[2020-11-15] MEDS: ZINC OXIDE/PANTHENOL/VITAMIN E 56 GM TUBE TP SCH ×2 (10:05→21:57)
[2020-11-15] MEDS: APIXABAN 5 MG TABLET PO SCH ×2 (10:05→21:57)
[2020-11-15] MEDS: FAMOTIDINE 20 MG TABLET PO SCH (10:05)
[2020-11-15] MEDS: FOLIC ACID 1 MG TABLET (FP) PO SCH (10:05)
[2020-11-15] MEDS: ASCORBIC ACID 500 MG TABLET (FP) PO SCH ×2 (10:05→21:57)
[2020-11-15] MEDS: BUDESONIDE/FORMETEROL FUMARATE 160/4.5 mcg INHALER IH SCH ×2 (10:05→21:57)
[2020-11-15] MEDS: DEXAMETHASONE SOD PHOSPHATE 4 MG/1 ML VIAL IVPUSH SCH (10:05)
[2020-11-15] MEDS ORDERED: SODIUM CHLORIDE NASAL SPRAY 44 ML BOTTLE NS PRN (16:43)
[2020-11-15] MEDS: DOCUSATE SODIUM 100 MG CAPSULE (FP) PO SCH (21:56)
[2020-11-15] MEDS: MONTELUKAST NA 10 MG TABLET PO SCH (21:57)
[2020-11-15] MEDS: ATORVASTATIN CA 40 MG TABLET (FP) PO SCH (21:57)
[2020-11-15] MEDS: ALPRAZolam 0.25 MG TABLET PO PRN (22:05)
[2020-11-15] MEDS: guaiFENesin 200 MG/10 ML 10 ML UNIT-DOSE CUPS PO PRN (22:05)
[2020-11-16 07:39] LABS: BASO % 0.5 % (0-2.0); EOS % 0.6 % (0-4.5); HEMOGLOBIN 9.9 GM/dL (10.7-15.3); LYMPH % 17.2 % (8-40); MCH 29.9 pg (25.7-33.7); MCHC 32.9 g/dl (32.0-36.0); MEAN PLT VOLUME 8.8 fl (7.5-11.1); MONO % 6.3 % (3.8-10.2); NEUT % 75.4 % (42.8-82.8); PLATELET COUNT 214 K/MM3 (134-434); RDW 14.6 % (11.6-15.6); WHITE BLOOD COUNT 18.5 K/mm3 (4.0-10.0)
[2020-11-16 08:00] LABS: CHLORIDE 108 mmol/L (98-107); SODIUM 141 mmol/L (136-145)
[2020-11-16 08:04] LABS: ALBUMIN 2.9 g/dl (3.4-5.0); ANION GAP 4 MMOL/L (8-16); BLOOD UREA NITROGEN 26.7 mg/dL (7-18); CO2 29 mmol/L (21-32); GLUCOSE,RANDOM 86 mg/dL (74-106)
[2020-11-16 08:07] LABS: CREATININE 0.7 mg/dL (0.55-1.3); SGOT/AST 39 U/L (15-37); SGPT/ALT 63 U/L (13-61)
[2020-11-16 08:09] LABS: TOT PROT 5.7 g/dl (6.4-8.2)
[2020-11-16 08:10] LABS: ALK PHOS 109 U/L (45-117)
[2020-11-16 08:13] LABS: LDH 438 U/L (84-246)
[2020-11-16] MEDS: FAMOTIDINE 20 MG TABLET PO SCH (09:05)
[2020-11-16] MEDS: VALSARTAN 160 MG TABLET PO SCH (09:05)
[2020-11-16] MEDS: APIXABAN 5 MG TABLET PO SCH ×2 (09:05→21:57)
[2020-11-16] MEDS: FERROUS SO4 325 MG TABLET (FP) PO SCH ×3 (09:06→17:22)
[2020-11-16] MEDS: ASCORBIC ACID 500 MG TABLET (FP) PO SCH ×2 (09:06→21:57)
[2020-11-16] MEDS: FOLIC ACID 1 MG TABLET (FP) PO SCH (09:07)
[2020-11-16] MEDS: ZINC SULFATE 220 MG CAPSULE (FP) PO SCH (09:08)
[2020-11-16] MEDS: ZINC OXIDE/PANTHENOL/VITAMIN E 56 GM TUBE TP SCH ×2 (09:08→22:06)
[2020-11-16] MEDS: BUDESONIDE/FORMETEROL FUMARATE 160/4.5 mcg INHALER IH SCH ×2 (09:08→21:58)
[2020-11-16] MEDS: ASPIRIN 81 MG CHEWABLE TABLETS PO SCH (09:08)
[2020-11-16] MEDS: DEXAMETHASONE SOD PHOSPHATE 4 MG/1 ML VIAL IVPUSH SCH (09:08)
[2020-11-16] MEDS: ALPRAZolam 0.25 MG TABLET PO PRN (21:57)
[2020-11-16] MEDS: ATORVASTATIN CA 40 MG TABLET (FP) PO SCH (21:57)
[2020-11-16] MEDS: MONTELUKAST NA 10 MG TABLET PO SCH (21:57)
[2020-11-16] MEDS: DOCUSATE SODIUM 100 MG CAPSULE (FP) PO SCH (22:02)
[2020-11-17 07:21] LABS: BASO % 0.5 % (0-2.0); EOS % 0.7 % (0-4.5); HEMATOCRIT 27.6 % (32.4-45.2); HEMOGLOBIN 9.2 GM/dL (10.7-15.3); LYMPH % 17.6 % (8-40); MCH 30.1 pg (25.7-33.7); MCHC 33.3 g/dl (32.0-36.0); MEAN CELL VOLUME 90.6 fl (80-96); MONO % 7.1 % (3.8-10.2); NEUT % 74.1 % (42.8-82.8); PLATELET COUNT 170 K/MM3 (134-434); RBC 3.04 M/mm3 (3.60-5.2); RDW 14.8 % (11.6-15.6); WHITE BLOOD COUNT 16.2 K/mm3 (4.0-10.0)
[2020-11-17 07:40] LABS: CHLORIDE 107 mmol/L (98-107); POTASSIUM 3.9 mmol/L (3.5-5.1); SODIUM 140 mmol/L (136-145)
[2020-11-17 07:47] LABS: ALBUMIN 2.8 g/dl (3.4-5.0); ANION GAP 3 MMOL/L (8-16); BLOOD UREA NITROGEN 27.1 mg/dL (7-18); CALCIUM 8.9 mg/dL (8.5-10.1); CO2 29 mmol/L (21-32)
[2020-11-17 07:48] LABS: GLUCOSE,RANDOM 86 mg/dL (74-106)
[2020-11-17 07:50] LABS: SGOT/AST 31 U/L (15-37); SGPT/ALT 54 U/L (13-61)
[2020-11-17 07:51] LABS: CREATININE 0.6 mg/dL (0.55-1.3)
[2020-11-17 07:52] LABS: BILIRUBIN,TOTAL 0.4 mg/dL (0.2-1); LDH 385 U/L (84-246); TOT PROT 5.3 g/dl (6.4-8.2)
[2020-11-17 07:53] LABS: ALK PHOS 89 U/L (45-117)
[2020-11-17] MEDS: FERROUS SO4 325 MG TABLET (FP) PO SCH ×3 (08:24→17:20)
[2020-11-17] MEDS: ASCORBIC ACID 500 MG TABLET (FP) PO SCH ×2 (09:48→21:07)
[2020-11-17] MEDS: APIXABAN 5 MG TABLET PO SCH ×2 (09:48→21:07)
[2020-11-17] MEDS: ASPIRIN 81 MG CHEWABLE TABLETS PO SCH (09:48)
[2020-11-17] MEDS: VALSARTAN 160 MG TABLET PO SCH (09:48)
[2020-11-17] MEDS: DEXAMETHASONE SOD PHOSPHATE 4 MG/1 ML VIAL IVPUSH SCH (09:48)
[2020-11-17] MEDS: ZINC OXIDE/PANTHENOL/VITAMIN E 56 GM TUBE TP SCH ×2 (09:48→21:07)
[2020-11-17] MEDS: ZINC SULFATE 220 MG CAPSULE (FP) PO SCH (09:48)
[2020-11-17] MEDS: FOLIC ACID 1 MG TABLET (FP) PO SCH (09:49)
[2020-11-17] MEDS: FAMOTIDINE 20 MG TABLET PO SCH (09:49)
[2020-11-17] MEDS: BUDESONIDE/FORMETEROL FUMARATE 160/4.5 mcg INHALER IH SCH ×2 (09:50→21:07)
[2020-11-17] MEDS: DOCUSATE SODIUM 100 MG CAPSULE (FP) PO SCH (21:05)
[2020-11-17] MEDS: ATORVASTATIN CA 40 MG TABLET (FP) PO SCH (21:07)
[2020-11-17] MEDS: ALPRAZolam 0.25 MG TABLET PO PRN (21:07)
[2020-11-17] MEDS: MONTELUKAST NA 10 MG TABLET PO SCH (21:07)
[2020-11-18 08:11] LABS: BASO % 0.3 % (0-2.0); EOS % 1.1 % (0-4.5); HEMATOCRIT 27.1 % (32.4-45.2); HEMOGLOBIN 9.1 GM/dL (10.7-15.3); LYMPH % 17.6 % (8-40); MCH 30.5 pg (25.7-33.7); MCHC 33.5 g/dl (32.0-36.0); MEAN CELL VOLUME 91.2 fl (80-96); MEAN PLT VOLUME 9.2 fl (7.5-11.1); MONO % 8.7 % (3.8-10.2); NEUT % 72.3 % (42.8-82.8); PLATELET COUNT 166 K/MM3 (134-434); RBC 2.97 M/mm3 (3.60-5.2); RDW 15.3 % (11.6-15.6); WHITE BLOOD COUNT 14.3 K/mm3 (4.0-10.0)
[2020-11-18 08:34] LABS: CHLORIDE 106 mmol/L (98-107); POTASSIUM 4.2 mmol/L (3.5-5.1); SODIUM 144 mmol/L (136-145)
[2020-11-18 09:27] LABS: CALCIUM 9.3 mg/dL (8.5-10.1)
[2020-11-18 09:28] LABS: ALBUMIN 2.8 g/dl (3.4-5.0); ANION GAP 8 MMOL/L (8-16); BLOOD UREA NITROGEN 27.4 mg/dL (7-18); CO2 31 mmol/L (21-32); GLUCOSE,RANDOM 82 mg/dL (74-106); MAGNESIUM 2.1 mg/dL (1.8-2.4)
[2020-11-18 09:31] LABS: CREATININE 0.7 mg/dL (0.55-1.3); SGOT/AST 30 U/L (15-37); SGPT/ALT 56 U/L (13-61)
[2020-11-18 09:32] LABS: ALK PHOS 79 U/L (45-117)
[2020-11-18 09:33] LABS: BILIRUBIN,TOTAL 0.7 mg/dL (0.2-1); LDH 376 U/L (84-246); TOT PROT 5.3 g/dl (6.4-8.2)
[2020-11-18] MEDS: APIXABAN 5 MG TABLET PO SCH (09:39)
[2020-11-18] MEDS: ZINC SULFATE 220 MG CAPSULE (FP) PO SCH (09:39)
[2020-11-18] MEDS: VALSARTAN 160 MG TABLET PO SCH (09:39)
[2020-11-18] MEDS: ASCORBIC ACID 500 MG TABLET (FP) PO SCH (09:39)
[2020-11-18] MEDS: guaiFENesin 200 MG/10 ML 10 ML UNIT-DOSE CUPS PO PRN (09:39)
[2020-11-18] MEDS: BUDESONIDE/FORMETEROL FUMARATE 160/4.5 mcg INHALER IH SCH (09:40)
[2020-11-18] MEDS: DEXAMETHASONE SOD PHOSPHATE 4 MG/1 ML VIAL IVPUSH SCH (09:40)
[2020-11-18] MEDS: FOLIC ACID 1 MG TABLET (FP) PO SCH (09:40)
[2020-11-18] MEDS: FAMOTIDINE 20 MG TABLET PO SCH (09:40)
[2020-11-18] MEDS: FERROUS SO4 325 MG TABLET (FP) PO SCH ×3 (09:40→16:46)
[2020-11-18] MEDS: ASPIRIN 81 MG CHEWABLE TABLETS PO SCH (09:40)
[2020-11-18] MEDS: ZINC OXIDE/PANTHENOL/VITAMIN E 56 GM TUBE TP SCH (09:40)
[2020-11-18] MEDS ORDERED: WITCH HAZEL 50% (TUCKS) 40 PAD/JAR PAD TP PRN (15:53)
[2020-11-18 18:17] VITALS: BP 115/68; PULSE 98; TEMP 98.8
[2020-11-18] MEDS ORDERED: PRAMOXINE HCL/MINERAL OIL/ZNOX 30 GM TUBE RC SCH (22:00)
[2020-11-19] MEDS ORDERED: DEXAMETHASONE 4 MG TABLET (FP) PO SCH (10:00)
== END 2020-11-18 20:00 | DRG 177 ==
LOC: JER 15:50 → JERBED 19:49 → J4S 22:13
PROVIDERS: ADMIT Internal Medicine; ATTEND Nurse Practitioner Acute Care
PROC: XW033E5 Introduction of Remdesivir Anti-infective into Peripheral Vein, Percutaneous Approach, New Technology Group 5 (ICD-10-PCS; principal; 2020-11-04)
PROC: XW13325 Transfusion of Convalescent Plasma (Nonautologous) into Peripheral Vein, Percutaneous Approach, New Technology Group 5 (ICD-10-PCS; 2020-11-04)
PROC: XW033H5 Introduction of Tocilizumab into Peripheral Vein, Percutaneous Approach, New Technology Group 5 (ICD-10-PCS; 2020-11-04)
DX: U07.1 COVID-19 (principal); J12.82 Pneumonia due to coronavirus disease 2019; J96.01 Acute respiratory failure with hypoxia; N17.9 Acute kidney failure, unspecified; E87.0 Hyperosmolality and hypernatremia; I10 Essential (primary) hypertension; E78.5 Hyperlipidemia, unspecified; D50.9 Iron deficiency anemia, unspecified; D72.819 Decreased white blood cell count, unspecified; R63.0 Anorexia; D72.829 Elevated white blood cell count, unspecified; E83.41 Hypermagnesemia
CPT/HCPCS: 36415; 36430; 71045-TC-FY; 80053; 81003; 82248; 82308; 82550; 82553; 82565; 82607; 82728; 82747; 82803; 83540; 83550; 83605; 83615; 83735; 83935; 84300; 84484; 85014; 85025; 85027; 85379; 85610; 85730; 86140; 86769; 86850; 86900; 86901; 87040; 87086; 87804; 93005; 93010; 94660; 97116-GP; 97161-GP; 99285-25; C9399; C9803; J0131; J1100; J1644; J3262; P9017; U0003; U0005

== ENCOUNTER 2020-11-25 23:03 | Inpatient (IN) | payer OTHER ==
[2020-11-25] MEDS ORDERED: SODIUM CHLORIDE 0.9% 500 ML INFUS.BAG IV ONE (23:46)
[2020-11-25] MEDS ORDERED: ACETAMINOPHEN 1000 MG/100 ML VIAL (NON FORMULARY) IVPB ONE (23:46)
[2020-11-26] MEDS ORDERED: ACETAMINOPHEN INJECTION 100 ML IVPB ONE (00:46)
[2020-11-26 00:53] LABS: BASO % 0.2 % (0-2.0); EOS % 0.9 % (0-4.5); HEMATOCRIT 32.7 % (32.4-45.2); HEMOGLOBIN 10.7 GM/dL (10.7-15.3); LYMPH % 14.7 % (8-40); MCH 30.1 pg (25.7-33.7); MCHC 32.6 g/dl (32.0-36.0); MEAN CELL VOLUME 92.4 fl (80-96); MEAN PLT VOLUME 8.5 fl (7.5-11.1); MONO % 9.1 % (3.8-10.2); NEUT % 75.1 % (42.8-82.8); PLATELET COUNT 220 K/MM3 (134-434); RBC 3.54 M/mm3 (3.60-5.2); WHITE BLOOD COUNT 16.4 K/mm3 (4.0-10.0)
[2020-11-26 01:12] LABS: CHLORIDE 105 mmol/L (98-107); INR 1.55 (0.83-1.09); PROTHROMBIN TIME (PATIENT) 18.5 SEC (9.7-13.0); SODIUM 141 mmol/L (136-145)
[2020-11-26 01:14] LABS: CALCIUM 9.3 mg/dL (8.5-10.1)
[2020-11-26 01:15] LABS: ALBUMIN 3.4 g/dl (3.4-5.0); ANION GAP 7 MMOL/L (8-16); BLOOD UREA NITROGEN 25.4 mg/dL (7-18); CO2 29 mmol/L (21-32); GLUCOSE,RANDOM 102 mg/dL (74-106)
[2020-11-26 01:18] LABS: CREATININE 0.7 mg/dL (0.55-1.3); SGOT/AST 27 U/L (15-37); SGPT/ALT 44 U/L (13-61)
[2020-11-26 01:20] LABS: BILIRUBIN,TOTAL 0.4 mg/dL (0.2-1); TOT PROT 5.9 g/dl (6.4-8.2)
[2020-11-26 01:21] LABS: ALK PHOS 49 U/L (45-117)
[2020-11-26 01:22] LABS: LACTIC ACID 2.7 mmol/L (0.4-2.0)
[2020-11-26] MEDS ORDERED: morphine CARPU-JECT 2 MG/1 ML DISP.SYRIN IVPUSH ONE (02:02)
[2020-11-26] MEDS ORDERED: MORPHINE SULFATE 2 MG/ML VIAL ONE (02:07)
[2020-11-26] MEDS ORDERED: SODIUM CHLORIDE 0.9% 500 ML INFUS.BAG IV ONE (04:48)
[2020-11-26 05:40] LABS: URINE APPEARANCE CLOUDY; URINE COLOR YELLOW; URINE GLUCOSE (UA) NEGATIVE (NEGATIVE)
[2020-11-26 05:41] LABS: URINE BILIRUBIN NEGATIVE (NEGATIVE); URINE KETONE NEGATIVE (NEGATIVE)
[2020-11-26 05:42] LABS: URINE LEUK ESTERASE 2+ (NEGATIVE); URINE NITRITE NEGATIVE (NEGATIVE); URINE PROTEIN TRACE (NEGATIVE); URINE UROBILINOGEN 0.2 mg/dL (0.2-1.0)
[2020-11-26 05:43] LABS: EPI CELLS 26.2 /uL (0-25.1); HYALINE CASTS 2.31 /uL (0-3.1); URINE BACTERIA 579.3 /uL (0-1359); URINE RBC 147.8 /uL (0-23.9); URINE WBC 37.3 /uL (0-25.8)
[2020-11-26] MEDS ORDERED: ENOXAPARIN NA (PORCINE) 40 MG/0.4 ML DISP.SYRIN SQ SCH (17:00)
[2020-11-26] MEDS ORDERED: FERROUS SO4 325 MG TABLET (FP) ONE (17:10)
[2020-11-26] MEDS ORDERED: CEFTRIAXONE 1 GM/50 ML BAG ONE (17:10)
[2020-11-26] MEDS: PANTOPRAZOLE SODIUM 40 MG VIAL IVPUSH SCH (18:02)
[2020-11-26] MEDS: CEFTRIAXONE 1 GM in DEXTROSE 5%-WATER - 50 ML IVPB SCH (18:02)
[2020-11-26] MEDS: FERROUS SO4 325 MG TABLET (FP) PO SCH (18:03)
[2020-11-26 20:08] VITALS: BMI 29.2
[2020-11-26] MEDS: ASCORBIC ACID 500 MG TABLET (FP) PO SCH (21:40)
[2020-11-26] MEDS: ATORVASTATIN CA 40 MG TABLET (FP) PO SCH (21:40)
[2020-11-26] MEDS: APIXABAN 5 MG TABLET PO SCH (21:40)
[2020-11-26] MEDS ORDERED: PATIENT'S OWN MEDICATION (NON-FORMULARY) (Fluticasone Propionate [Flovent Diskus] 50 MCG B NS SCH (22:00)
[2020-11-27 10:31] LABS: BASO % 0.9 % (0-2.0); EOS % 7.3 % (0-4.5); HEMATOCRIT 28.4 % (32.4-45.2); HEMOGLOBIN 9.5 GM/dL (10.7-15.3); LYMPH % 17.9 % (8-40); MCH 31.2 pg (25.7-33.7); MCHC 33.3 g/dl (32.0-36.0); MEAN CELL VOLUME 93.5 fl (80-96); MEAN PLT VOLUME 8.9 fl (7.5-11.1); MONO % 6.8 % (3.8-10.2); NEUT % 67.1 % (42.8-82.8); PLATELET COUNT 159 K/MM3 (134-434); RBC 3.03 M/mm3 (3.60-5.2); RDW 15.9 % (11.6-15.6); WHITE BLOOD COUNT 11.3 K/mm3 (4.0-10.0)
[2020-11-27] MEDS ORDERED: cefTRIAXone SODIUM 1 GM VIAL ONE (10:35)
[2020-11-27] MEDS ORDERED: DEXTROSE 5%-WATER - 50 ML IVPB ONE (10:36)
[2020-11-27 10:41] LABS: ALBUMIN 2.9 g/dl (3.4-5.0); BLOOD UREA NITROGEN 18.9 mg/dL (7-18); CALCIUM 8.7 mg/dL (8.5-10.1)
[2020-11-27 10:44] LABS: CREATININE 0.4 mg/dL (0.55-1.3); PHOSPHOROUS 3.4 mg/dL (2.5-4.9)
[2020-11-27 10:46] LABS: TOT PROT 4.8 g/dl (6.4-8.2)
[2020-11-27 10:48] LABS: BILIRUBIN,TOTAL 0.6 mg/dL (0.2-1)
[2020-11-27] MEDS: CHOLECALCIFEROL (VIT D3) 1,000 UNIT (25 MCG) TABLET PO SCH (11:04)
[2020-11-27] MEDS: ASCORBIC ACID 500 MG TABLET (FP) PO SCH ×2 (11:04→21:42)
[2020-11-27] MEDS: FOLIC ACID 1 MG TABLET (FP) PO SCH (11:04)
[2020-11-27] MEDS: APIXABAN 5 MG TABLET PO SCH ×2 (11:04→21:42)
[2020-11-27] MEDS: VALSARTAN 160 MG TABLET PO SCH (11:05)
[2020-11-27] MEDS: FERROUS SO4 325 MG TABLET (FP) PO SCH ×3 (11:05→17:14)
[2020-11-27] MEDS: FLUTICASONE PROP 0.05% 16 GM NASAL SPRAY NS SCH ×2 (11:07→21:50)
[2020-11-27] MEDS ORDERED: CEFEPIME HCL 1 GM VIAL (RESTRICTED TO ID) ONE ×2 (11:12→21:24)
[2020-11-27] MEDS ORDERED: DEXTROSE 5%-WATER 100 ML IVPB ONE ×2 (11:12→21:25)
[2020-11-27] MEDS: PANTOPRAZOLE SODIUM 40 MG VIAL IVPUSH SCH (11:34)
[2020-11-27] MEDS: CEFEPIME 1 GM in DEXTROSE 5%-WATER 100 ML IVPB SCH ×2 (11:34→21:43)
[2020-11-27] MEDS: DEXTROSE 5%-NORMAL SALINE 1,000 ML IV SCH (12:04)
[2020-11-27] MEDS: CEFTRIAXONE 1 GM in DEXTROSE 5%-WATER - 50 ML IVPB SCH (12:12)
[2020-11-27] MEDS: ATORVASTATIN CA 40 MG TABLET (FP) PO SCH (21:42)
[2020-11-27] MEDS: NYSTATIN POWDER 100,000 UNITS/GM - 15 GM TOPICAL POWDER TP SCH (21:43)
[2020-11-27] MEDS: ALPRAZolam 0.25 MG TABLET PO PRN (21:46)
[2020-11-28] MEDS: DEXTROSE 5%-NORMAL SALINE 1,000 ML IV SCH ×3 (00:53→12:30)
[2020-11-28] MEDS: ALBUTEROL SO4 2.5/IPRATROPIUM 0.5 INH SOL 3 ML VIAL.NEB. NEB SCH ×5 (06:29→21:00)
[2020-11-28] MEDS ORDERED: PT OWN MED DRAWER 7, Y5N ONE (10:04)
[2020-11-28] MEDS ORDERED: DEXTROSE 5%-WATER 100 ML IVPB ONE ×2 (10:05→20:40)
[2020-11-28] MEDS ORDERED: CEFEPIME HCL 1 GM VIAL (RESTRICTED TO ID) ONE ×2 (10:05→20:39)
[2020-11-28] MEDS: FERROUS SO4 325 MG TABLET (FP) PO SCH ×3 (10:09→17:24)
[2020-11-28] MEDS: VALSARTAN 160 MG TABLET PO SCH (10:09)
[2020-11-28] MEDS: APIXABAN 5 MG TABLET PO SCH ×2 (10:09→21:06)
[2020-11-28] MEDS: CHOLECALCIFEROL (VIT D3) 1,000 UNIT (25 MCG) TABLET PO SCH (10:09)
[2020-11-28] MEDS: ASCORBIC ACID 500 MG TABLET (FP) PO SCH ×2 (10:09→21:06)
[2020-11-28] MEDS: NYSTATIN POWDER 100,000 UNITS/GM - 15 GM TOPICAL POWDER TP SCH ×2 (10:10→21:07)
[2020-11-28] MEDS: FLUTICASONE PROP 0.05% 16 GM NASAL SPRAY NS SCH ×2 (10:10→21:06)
[2020-11-28] MEDS: FOLIC ACID 1 MG TABLET (FP) PO SCH (10:10)
[2020-11-28] MEDS: PANTOPRAZOLE SODIUM 40 MG VIAL IVPUSH SCH (10:10)
[2020-11-28] MEDS: CEFEPIME 1 GM in DEXTROSE 5%-WATER 100 ML IVPB SCH ×2 (10:40→21:06)
[2020-11-28] MEDS: DEXAMETHASONE SOD PHOSPHATE 4 MG/1 ML VIAL IVPUSH SCH (10:41)
[2020-11-28] MEDS: BUDESONIDE/FORMETEROL FUMARATE 160/4.5 mcg INHALER IH SCH ×2 (11:36→21:06)
[2020-11-28] MEDS: ATORVASTATIN CA 40 MG TABLET (FP) PO SCH (21:06)
[2020-11-28] MEDS: MAGNESIUM HYDROX 2400MG/30ML ORAL SUSPENSION 30 ML CUP PO PRN (23:50)
[2020-11-29] MEDS: DEXTROSE 5%-NORMAL SALINE 1,000 ML IV SCH ×3 (01:34→12:11)
[2020-11-29] MEDS: ALBUTEROL SO4 2.5/IPRATROPIUM 0.5 INH SOL 3 ML VIAL.NEB. NEB SCH ×4 (08:15→21:03)
[2020-11-29] MEDS ORDERED: PT OWN MED DRAWER 7, Y5N ONE (08:52)
[2020-11-29] MEDS ORDERED: CEFEPIME HCL 1 GM VIAL (RESTRICTED TO ID) ONE ×2 (08:59→21:22)
[2020-11-29] MEDS ORDERED: DEXTROSE 5%-WATER 100 ML IVPB ONE ×2 (09:00→21:22)
[2020-11-29] MEDS: FERROUS SO4 325 MG TABLET (FP) PO SCH ×3 (11:03→17:04)
[2020-11-29] MEDS: ASCORBIC ACID 500 MG TABLET (FP) PO SCH ×2 (11:03→21:33)
[2020-11-29] MEDS: FOLIC ACID 1 MG TABLET (FP) PO SCH (11:03)
[2020-11-29] MEDS: CHOLECALCIFEROL (VIT D3) 1,000 UNIT (25 MCG) TABLET PO SCH (11:03)
[2020-11-29] MEDS: APIXABAN 5 MG TABLET PO SCH ×2 (11:03→21:33)
[2020-11-29] MEDS: VALSARTAN 160 MG TABLET PO SCH (11:03)
[2020-11-29] MEDS: DEXAMETHASONE SOD PHOSPHATE 4 MG/1 ML VIAL IVPUSH SCH (11:04)
[2020-11-29] MEDS: CEFEPIME 1 GM in DEXTROSE 5%-WATER 100 ML IVPB SCH ×2 (11:04→21:33)
[2020-11-29] MEDS: PANTOPRAZOLE SODIUM 40 MG VIAL IVPUSH SCH (11:05)
[2020-11-29] MEDS: BUDESONIDE/FORMETEROL FUMARATE 160/4.5 mcg INHALER IH SCH ×2 (11:05→21:33)
[2020-11-29] MEDS: FLUTICASONE PROP 0.05% 16 GM NASAL SPRAY NS SCH ×2 (11:05→21:33)
[2020-11-29] MEDS: ALPRAZolam 0.25 MG TABLET PO PRN (12:10)
[2020-11-29] MEDS: MAGNESIUM HYDROX 2400MG/30ML ORAL SUSPENSION 30 ML CUP PO PRN (12:10)
[2020-11-29] MEDS: NYSTATIN POWDER 100,000 UNITS/GM - 15 GM TOPICAL POWDER TP SCH ×2 (17:04→21:34)
[2020-11-29] MEDS: AMINO ACIDS/PROTEIN HYDROLYS 30 ML LIQUID.PKT PO SCH (17:04)
[2020-11-29] MEDS: ATORVASTATIN CA 40 MG TABLET (FP) PO SCH (21:33)
[2020-11-29] MEDS ORDERED: SENNOSIDES/DOCUSATE COMBO (SENNA PLUS) TABLET (UD) PO SCH (22:00)
[2020-11-30] MEDS: ALPRAZolam 0.25 MG TABLET PO PRN ×3 (02:56→22:37)
[2020-11-30] MEDS ORDERED: ACETAMINOPHEN 325 MG TABLET (FP) PO STA (04:40)
[2020-11-30] MEDS: ALBUTEROL SO4 2.5/IPRATROPIUM 0.5 INH SOL 3 ML VIAL.NEB. NEB SCH ×4 (08:00→19:29)
[2020-11-30] MEDS ORDERED: CEFEPIME HCL 1 GM VIAL (RESTRICTED TO ID) ONE (10:05)
[2020-11-30] MEDS ORDERED: DEXTROSE 5%-WATER 100 ML IVPB ONE (10:05)
[2020-11-30] MEDS: CEFEPIME 1 GM in DEXTROSE 5%-WATER 100 ML IVPB SCH (10:08)
[2020-11-30] MEDS: AMINO ACIDS/PROTEIN HYDROLYS 30 ML LIQUID.PKT PO SCH ×2 (10:09→17:11)
[2020-11-30] MEDS: APIXABAN 5 MG TABLET PO SCH ×2 (10:09→22:31)
[2020-11-30] MEDS: CHOLECALCIFEROL (VIT D3) 1,000 UNIT (25 MCG) TABLET PO SCH (10:09)
[2020-11-30] MEDS: DEXAMETHASONE SOD PHOSPHATE 4 MG/1 ML VIAL IVPUSH SCH (10:10)
[2020-11-30] MEDS: VALSARTAN 160 MG TABLET PO SCH (10:10)
[2020-11-30] MEDS: PANTOPRAZOLE SODIUM 40 MG VIAL IVPUSH SCH (10:11)
[2020-11-30] MEDS: FERROUS SO4 325 MG TABLET (FP) PO SCH ×3 (10:11→17:11)
[2020-11-30] MEDS: NYSTATIN POWDER 100,000 UNITS/GM - 15 GM TOPICAL POWDER TP SCH ×2 (10:22→22:31)
[2020-11-30] MEDS: FLUTICASONE PROP 0.05% 16 GM NASAL SPRAY NS SCH ×2 (10:22→22:31)
[2020-11-30] MEDS: FOLIC ACID 1 MG TABLET (FP) PO SCH (10:22)
[2020-11-30] MEDS: BUDESONIDE/FORMETEROL FUMARATE 160/4.5 mcg INHALER IH SCH ×2 (10:23→22:31)
[2020-11-30] MEDS: ASCORBIC ACID 500 MG TABLET (FP) PO SCH ×2 (10:23→22:31)
[2020-11-30 11:33] LABS: HEMATOCRIT 24.1 % (32.4-45.2); HEMOGLOBIN 8.3 GM/dL (10.7-15.3); MCH 31.8 pg (25.7-33.7); MCHC 34.3 g/dl (32.0-36.0); MEAN CELL VOLUME 92.8 fl (80-96); MEAN PLT VOLUME 8.2 fl (7.5-11.1); PLATELET COUNT 191 K/MM3 (134-434); RDW 16.2 % (11.6-15.6); WHITE BLOOD COUNT 9.8 K/mm3 (4.0-10.0)
[2020-11-30 11:54] LABS: ALBUMIN 2.6 g/dl (3.4-5.0); BLOOD UREA NITROGEN 11.6 mg/dL (7-18); CALCIUM 8.8 mg/dL (8.5-10.1); MAGNESIUM 2.3 mg/dL (1.8-2.4)
[2020-11-30 11:58] LABS: CREATININE 0.5 mg/dL (0.55-1.3)
[2020-11-30 12:00] LABS: BILIRUBIN,TOTAL 0.2 mg/dL (0.2-1); IRON SERUM 29 ug/dL (50-175); TOT PROT 4.7 g/dl (6.4-8.2); TOTAL IRON BINDING CAPACITY 211 ug/dL (250-450)
[2020-11-30] MEDS ORDERED: FERRIC CARBOXYMALTOSE 750 MG in SODIUM CHLORIDE 250 ML IVPB ONE (13:00)
[2020-11-30] MEDS ORDERED: MAGNESIUM HYDROX 2400MG/30ML ORAL SUSPENSION 30 ML CUP PO ONE (13:15)
[2020-11-30] MEDS: MAGNESIUM HYDROX 2400MG/30ML ORAL SUSPENSION 30 ML CUP PO PRN (13:19)
[2020-11-30] MEDS ORDERED: SODIUM PHOSPHATE/NA BIPHOS 133 ML ENEMA PR ONE (15:38)
[2020-11-30] MEDS: HYDROCORTISONE 2.5% TOPICAL CREAM 30 GM TUBE RC SCH (17:17)
[2020-11-30] MEDS ORDERED: SENNOSIDES 8.6MG TABLET (FP) PO SCH (22:00)
[2020-11-30] MEDS: HYDROCORTISONE ACETATE 25 MG/SUPP.RECT PR SCH (22:31)
[2020-11-30] MEDS: ATORVASTATIN CA 40 MG TABLET (FP) PO SCH (22:31)
[2020-12-01] MEDS: ALBUTEROL SO4 2.5/IPRATROPIUM 0.5 INH SOL 3 ML VIAL.NEB. NEB SCH ×4 (07:42→20:26)
[2020-12-01] MEDS: FERROUS SO4 325 MG TABLET (FP) PO SCH ×3 (08:40→16:30)
[2020-12-01] MEDS: ASCORBIC ACID 500 MG TABLET (FP) PO SCH ×2 (10:41→22:59)
[2020-12-01] MEDS: CHOLECALCIFEROL (VIT D3) 1,000 UNIT (25 MCG) TABLET PO SCH (10:41)
[2020-12-01] MEDS: APIXABAN 5 MG TABLET PO SCH ×2 (10:41→22:59)
[2020-12-01] MEDS: PANTOPRAZOLE 40 MG TABLET PO SCH (10:41)
[2020-12-01] MEDS: HYDROCORTISONE 2.5% TOPICAL CREAM 30 GM TUBE RC SCH (10:41)
[2020-12-01] MEDS: AMINO ACIDS/PROTEIN HYDROLYS 30 ML LIQUID.PKT PO SCH ×2 (10:41→16:30)
[2020-12-01] MEDS: VALSARTAN 160 MG TABLET PO SCH (10:42)
[2020-12-01] MEDS: BUDESONIDE/FORMETEROL FUMARATE 160/4.5 mcg INHALER IH SCH ×2 (10:42→23:01)
[2020-12-01] MEDS: NYSTATIN POWDER 100,000 UNITS/GM - 15 GM TOPICAL POWDER TP SCH (10:42)
[2020-12-01] MEDS: FOLIC ACID 1 MG TABLET (FP) PO SCH (10:42)
[2020-12-01] MEDS: ALPRAZolam 0.25 MG TABLET PO PRN (10:42)
[2020-12-01] MEDS: DEXAMETHASONE SOD PHOSPHATE 4 MG/1 ML VIAL IVPUSH SCH (10:42)
[2020-12-01] MEDS: DOCUSATE SODIUM 100 MG CAPSULE (FP) PO PRN (10:42)
[2020-12-01] MEDS: FLUTICASONE PROP 0.05% 16 GM NASAL SPRAY NS SCH ×2 (10:42→23:00)
[2020-12-01] MEDS: DEXTROSE 5%-NORMAL SALINE 1,000 ML IV SCH (14:10)
[2020-12-01] MEDS ORDERED: PT OWN MED DRAWER 7, Y5N ONE (22:48)
[2020-12-01] MEDS: ATORVASTATIN CA 40 MG TABLET (FP) PO SCH (22:59)
[2020-12-01] MEDS: HYDROCORTISONE ACETATE 25 MG/SUPP.RECT PR SCH (23:00)
[2020-12-02] MEDS: NYSTATIN POWDER 100,000 UNITS/GM - 15 GM TOPICAL POWDER TP SCH ×3 (00:24→22:55)
[2020-12-02] MEDS: ALPRAZolam 0.25 MG TABLET PO PRN ×3 (00:31→23:03)
[2020-12-02] MEDS: ALBUTEROL SO4 2.5/IPRATROPIUM 0.5 INH SOL 3 ML VIAL.NEB. NEB SCH ×3 (07:40→15:49)
[2020-12-02] MEDS: APIXABAN 5 MG TABLET PO SCH ×2 (09:20→22:51)
[2020-12-02] MEDS: VALSARTAN 160 MG TABLET PO SCH (09:20)
[2020-12-02] MEDS: AMINO ACIDS/PROTEIN HYDROLYS 30 ML LIQUID.PKT PO SCH ×2 (09:20→16:51)
[2020-12-02] MEDS: FERROUS SO4 325 MG TABLET (FP) PO SCH ×3 (09:21→16:51)
[2020-12-02] MEDS: CHOLECALCIFEROL (VIT D3) 1,000 UNIT (25 MCG) TABLET PO SCH (09:21)
[2020-12-02] MEDS: DOCUSATE SODIUM 100 MG CAPSULE (FP) PO PRN ×2 (09:21→22:59)
[2020-12-02] MEDS: ASCORBIC ACID 500 MG TABLET (FP) PO SCH ×2 (09:21→22:59)
[2020-12-02] MEDS: BUDESONIDE/FORMETEROL FUMARATE 160/4.5 mcg INHALER IH SCH ×2 (09:21→22:55)
[2020-12-02] MEDS: DEXAMETHASONE SOD PHOSPHATE 4 MG/1 ML VIAL IVPUSH SCH (09:21)
[2020-12-02] MEDS: PANTOPRAZOLE 40 MG TABLET PO SCH (09:21)
[2020-12-02] MEDS: HYDROCORTISONE 2.5% TOPICAL CREAM 30 GM TUBE RC SCH (09:22)
[2020-12-02] MEDS: FOLIC ACID 1 MG TABLET (FP) PO SCH (09:22)
[2020-12-02] MEDS: FLUTICASONE PROP 0.05% 16 GM NASAL SPRAY NS SCH ×2 (09:22→22:55)
[2020-12-02] MEDS: LORATADINE 10 MG TABLET PO SCH (12:16)
[2020-12-02] MEDS: ATORVASTATIN CA 40 MG TABLET (FP) PO SCH (22:51)
[2020-12-02] MEDS: HYDROCORTISONE ACETATE 25 MG/SUPP.RECT PR SCH (22:53)
[2020-12-03] MEDS: ALBUTEROL SO4 2.5/IPRATROPIUM 0.5 INH SOL 3 ML VIAL.NEB. NEB SCH ×4 (08:48→20:55)
[2020-12-03] MEDS: DEXAMETHASONE SOD PHOSPHATE 4 MG/1 ML VIAL IVPUSH SCH (09:25)
[2020-12-03] MEDS: FERROUS SO4 325 MG TABLET (FP) PO SCH ×3 (09:26→17:04)
[2020-12-03] MEDS: CHOLECALCIFEROL (VIT D3) 1,000 UNIT (25 MCG) TABLET PO SCH (09:27)
[2020-12-03] MEDS: ASCORBIC ACID 500 MG TABLET (FP) PO SCH ×2 (09:27→21:22)
[2020-12-03] MEDS: AMINO ACIDS/PROTEIN HYDROLYS 30 ML LIQUID.PKT PO SCH ×2 (09:27→17:04)
[2020-12-03] MEDS: LORATADINE 10 MG TABLET PO SCH (09:27)
[2020-12-03] MEDS: PANTOPRAZOLE 40 MG TABLET PO SCH (09:27)
[2020-12-03] MEDS: APIXABAN 5 MG TABLET PO SCH ×2 (09:27→21:22)
[2020-12-03] MEDS: VALSARTAN 160 MG TABLET PO SCH (09:27)
[2020-12-03] MEDS: BUDESONIDE/FORMETEROL FUMARATE 160/4.5 mcg INHALER IH SCH ×2 (09:29→21:23)
[2020-12-03] MEDS: NYSTATIN POWDER 100,000 UNITS/GM - 15 GM TOPICAL POWDER TP SCH ×2 (09:29→21:23)
[2020-12-03] MEDS: HYDROCORTISONE 2.5% TOPICAL CREAM 30 GM TUBE RC SCH (09:30)
[2020-12-03] MEDS: FLUTICASONE PROP 0.05% 16 GM NASAL SPRAY NS SCH ×2 (09:30→21:23)
[2020-12-03] MEDS: FOLIC ACID 1 MG TABLET (FP) PO SCH (09:31)
[2020-12-03 10:06] LABS: SARS-CoV-2 NAA Not Detected (Not Detected)
[2020-12-03] MEDS: ALPRAZolam 0.25 MG TABLET PO PRN (21:22)
[2020-12-03] MEDS: ATORVASTATIN CA 40 MG TABLET (FP) PO SCH (21:23)
[2020-12-03] MEDS: HYDROCORTISONE ACETATE 25 MG/SUPP.RECT PR SCH (21:23)
[2020-12-04 06:16] VITALS: TEMP 98.2
[2020-12-04] MEDS: ALBUTEROL SO4 2.5/IPRATROPIUM 0.5 INH SOL 3 ML VIAL.NEB. NEB SCH ×3 (07:40→15:43)
[2020-12-04] MEDS: AMINO ACIDS/PROTEIN HYDROLYS 30 ML LIQUID.PKT PO SCH ×2 (09:35→17:12)
[2020-12-04] MEDS: CHOLECALCIFEROL (VIT D3) 1,000 UNIT (25 MCG) TABLET PO SCH (09:36)
[2020-12-04] MEDS: LORATADINE 10 MG TABLET PO SCH (09:36)
[2020-12-04] MEDS: VALSARTAN 160 MG TABLET PO SCH (09:37)
[2020-12-04] MEDS: PANTOPRAZOLE 40 MG TABLET PO SCH (09:37)
[2020-12-04] MEDS: APIXABAN 5 MG TABLET PO SCH (09:37)
[2020-12-04] MEDS: FERROUS SO4 325 MG TABLET (FP) PO SCH ×3 (09:37→17:12)
[2020-12-04] MEDS: ASCORBIC ACID 500 MG TABLET (FP) PO SCH (09:37)
[2020-12-04] MEDS: FOLIC ACID 1 MG TABLET (FP) PO SCH (09:38)
[2020-12-04] MEDS: BUDESONIDE/FORMETEROL FUMARATE 160/4.5 mcg INHALER IH SCH (09:39)
[2020-12-04] MEDS: NYSTATIN POWDER 100,000 UNITS/GM - 15 GM TOPICAL POWDER TP SCH (09:39)
[2020-12-04] MEDS: FLUTICASONE PROP 0.05% 16 GM NASAL SPRAY NS SCH (09:39)
[2020-12-04] MEDS: HYDROCORTISONE 2.5% TOPICAL CREAM 30 GM TUBE RC SCH (09:40)
[2020-12-04] MEDS ORDERED: DEXAMETHASONE 4 MG TABLET (FP) PO ONE (10:00)
[2020-12-04 15:12] VITALS: BP 114/60; PULSE 95
== END 2020-12-04 19:30 | DRG 689 ==
LOC: JER 23:03 → JERBED 11-26 06:14 → J8W 11-26 18:52 → J7W 11-29 03:54
PROVIDERS: ADMIT Hospitalist; ATTEND Family Medicine
DX: N39.0 Urinary tract infection, site not specified (principal); U07.1 COVID-19; J12.82 Pneumonia due to coronavirus disease 2019; J96.01 Acute respiratory failure with hypoxia; D50.9 Iron deficiency anemia, unspecified; I10 Essential (primary) hypertension; E78.5 Hyperlipidemia, unspecified; D72.829 Elevated white blood cell count, unspecified
CPT/HCPCS: 36415; 36569; 71045-TC-FY; 74174-TC; 77001-TC-FY; 80053; 81003; 82272; 82962; 83540; 83550; 83605; 83735; 84100; 84484; 85025; 85027; 85610; 85730; 87077; 87086; 93005; 93010; 94640; 97116-GP; 97162-GP; 99285-25; C1751; C9803; J0131; J1439; U0003; U0005